=== PATIENT | female | born 1945 | race Caucasian/White ===

== ENCOUNTER → 2018-11-04 13:32 | Outpatient (BNVA) | payer MEDICARE, MEDICAID, SELFPAY | PROVIDERS: Referring Provider Orthopaedic Surgery; Visit Provider Nurse Practitioner Adult Health | DX: G56.23 Lesion of ulnar nerve, bilateral upper limbs (principal); G56.02 Carpal tunnel syndrome, left upper limb | CPT/HCPCS: 95886; 95911; 99203 ==